=== PATIENT | male | born 1960 | race Hispanic/Latino ===

== ENCOUNTER 2016-11-09 09:52 | Outpatient (CLI) | payer MEDICARE, OTHER ==
--- NOTE | 2016-11-09 13:12 | Fluoroscopy Report ---
UPPER GI SERIES WITH AIR-CONTRAST History: Dysphagia, gastroesophageal reflux disease. Findings: Compared to 08/20/13. Deglutition is normal. No evidence for aspiration. The esophagus has normal caliber and mucosal pattern throughout. No evidence for stricture, ring, web or abnormal dilatation. Multiple tertiary contractions were witnessed in the esophagus throughout this exam consistent with spasm. Occasional episodes of gastroesophageal reflux to the proximal esophagus was witnessed. A LAP band appears to be in good position. There is no evidence for slippage. There is easy passage of the contrast agent through the lap band. There is normal filling of the gastric cavity. No evidence for ulceration or mass. The duodenal bulb and duodenal sweep are within normal limits. 1 cm diverticulum projecting from the descending duodenum is unchanged. Impression: Essentially normal appearance of the LAP band. Esophageal spasm and episodes of gastroesophageal reflux to the proximal esophagus were witnessed during this exam. Esophagitis is likely.
== END 2016-11-09 09:53 | disposition home or self-care (01) ==
LOC: FLUORO 09:52
PROVIDERS: ATTEND Specialist
DX: K21.9 Gastro-esophageal reflux disease without esophagitis (principal); K57.10 Diverticulosis of small intestine without perforation or abscess without bleeding
CPT/HCPCS: 74247

== ENCOUNTER 2016-12-20 06:34 | Day surgery (SDC) | payer MEDICARE, OTHER ==
[2016-12-20] MEDS ORDERED: NACL 0.9% 1000 ML 1,000 ML IV SCH (09:00)
[2016-12-20] MEDS ORDERED: DIPRIVAN 10 MG/ML IV ONE ×3 (09:19)
--- NOTE | 2016-12-20 09:19 | Anesthesia Day of Surgery ---
Anesthesia Day of Surgery - Day of Surgery Patient Examined: Yes Patient H&P Reviewed: Yes Patient is NPO: Yes
--- NOTE | 2016-12-20 09:19 | Anesthesia Consultation ---
Anesthesia Consult and Med Hx Date of service: 12/20/16 - Airway Anesthetic Teeth Evaluation: Chipped (front teeth) ROM Head & Neck: Adequate Mental/Hyoid Distance: Adequate Mallampati Class: Class II Intubation Access Assessment: Probably Good - Pulmonary Exam CTA: Yes - Cardiac Exam Cardiac Exam: RRR - Pre-Operative Health Status ASA Pre-Surgery Classification: ASA3 Proposed Anesthetic Plan: MAC - Pulmonary Hx Smoking: Yes (quit 6 months ago) SOB: Yes COPD: Yes Hx Sleep Apnea: Yes (CPAP doesnt use) - Cardiovascular System Hx Hypertension: Yes Hx Coronary Artery Disease: Yes Hx Heart Attack/AMI: Yes Hx Percutaneous Transluminal Coronary Angioplasty (PTCA): Yes - Central Nervous System CVA: 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
--- NOTE | 2016-12-20 09:49 | Operative Report ---
Operative Report Operative Report: DATE 12/20/2016 SURGERY: Upper endoscopy. SURGEON: Julian Meier M.D. INSURANCE UNDERWRITER: Ryan Ackerman MD PRE OP DX: dyspepsia POST OP DX: same TYPE OF ANESTHESIA: MAC. ESTIMATED BLOOD LOSS: None. COMPLICATIONS: None. SPECIMENS REMOVED: None. FINDINGS: 1. Lap gastric band in correct position 2. Otherwise, normal esophagus, stomach and first portion of duodenum. INDICATIONS:INDICATION FOR PROCEDURE: Patient is a 56-year-old male with a long history of morbid obesity. He is planned to have a weight loss procedure and is here for preoperative planning EGD. PROCEDURE DETAILS: After consent was reviewed, patient was taken back to the operating room where patient was placed in the left lateral decubitus position and a bite block was placed in the mouth. After a time-out was called, MAC anesthesia was initiated. I then passed the endoscope into her oropharynx, into his esophagus, visualized the entire esophagus, which was all within normal limits. I then visualized the stomach and the first portion of the duodenum and there were no abnormalities I could clearly visualize. I then retroflexed the scope in the stomach and visualized the lap band on correct position. I couldn't see the hiatus. I then desufflated the stomach and removed the endoscope. Patient tolerated procedure well and was transferred to recovery room in good and stable condition.
--- NOTE | 2016-12-20 09:51 | Discharge Summary ---
Providers - Providers Date of discharge: 12/20/16 Attending physician: ROXY PULIDO Primary care physician: SAVANAH KIM Hospitalization Reason for admission: outpateint EGD Condition: Stable Procedures: EGD Disposition: DISCHARGED TO HOME OR SELFCARE Core Measure Documentation - Palliative Care Palliative Care/ Comfort Measures: Not Applicable - Core Measures Any of the following diagnoses?: none Exam - Physical Exam Narrative exam: unchanged from preop - Constitutional Vitals: Temp Pulse Resp BP Pulse Ox 97.5 F L 67 20 146/84 96 12/20/16 08:46 12/20/16 08:46 12/20/16 08:46 12/20/16 08:46 12/20/16 08:46 Plan Activity: advance as tolerated Diet: low carbohydrate Follow up with: SAVANAH KIM MD [Primary Care Provider] - 7 Days
[2016-12-20 10:13] VITALS: BP 127/64
--- NOTE | 2016-12-20 15:08 | Post Anesthesia Evaluation ---
- Post Anesthesia Evaluation Patient Participated: Yes Airway Patent: Yes Stable Respiratory Function: Yes Nausea/Vomiting: No Temp > 96.8F: Yes Pain Manageable: Yes Adequeate Hydration: Yes Anesthesia Complications: No Block Receding Appropriately: Not Applicable Patient on Ventilator: No
== END 2016-12-20 06:35 | disposition home or self-care (01) ==
LOC: GIO 06:34
PROVIDERS: ATTEND Specialist
DX: R10.13 Epigastric pain (principal); J43.9 Emphysema, unspecified; I10 Essential (primary) hypertension; M19.90 Unspecified osteoarthritis, unspecified site; G47.33 Obstructive sleep apnea (adult) (pediatric); F32.9 Major depressive disorder, single episode, unspecified; I25.10 Atherosclerotic heart disease of native coronary artery without angina pectoris; E66.01 Morbid (severe) obesity due to excess calories; Z68.41 Body mass index [BMI] 40.0-44.9, adult; Z86.73 Personal history of transient ischemic attack (TIA), and cerebral infarction without residual deficits; Z85.828 Personal history of other malignant neoplasm of skin; Z98.84 Bariatric surgery status; Z87.891 Personal history of nicotine dependence; Z95.1 Presence of aortocoronary bypass graft; Z95.5 Presence of coronary angioplasty implant and graft; Z79.899 Other long term (current) drug therapy
CPT/HCPCS: 43235; J2704

== ENCOUNTER 2018-12-25 06:59 | Day surgery (SDC) | payer MEDICARE, OTHER ==
[2018-12-25] MEDS ORDERED: NACL 0.9% 500 ML 500 ML IV SCH (08:00)
[2018-12-25] MEDS ORDERED: HEPARIN/NS 5000 UNIT/500ML(CATH LAB) 1,000 ML IR ONE (09:16)
[2018-12-25] MEDS ORDERED: VERSED ONE (09:17)
[2018-12-25] MEDS ORDERED: HEPARIN 10,000 UNITS/10 ML ONE (09:17)
[2018-12-25] MEDS ORDERED: XYLOCAINE 2% INFILTRATI ONE (09:17)
[2018-12-25] MEDS ORDERED: NITROGLYCERIN SYRINGE 0 ML ONE (09:17)
[2018-12-25] MEDS ORDERED: CALAN ONE (09:17)
[2018-12-25] MEDS: SUBLIMAZE ONE ×2 (10:01→10:14)
--- NOTE | 2018-12-25 12:25 | Short Stay Summary ---
Short Stay Documentation Date of service: 12/25/18 - History H&P: obtained from office - Allergies and Medications Current Medications: Allergies No Known Allergies Allergy (Verified 01/17/17 12:21) Home Medications Medication Instructions Recorded Confirmed Last Taken Type AtorvaSTATin [Lipitor] 20 mg PO DAILY 11/03/15 12/25/18 12/24/18 History 20mg Clopidogrel Bisulfate [Plavix] 75 mg PO DAILY 11/03/15 12/25/18 12/24/18 History 75mg Ezetimibe [Zetia] 10 mg PO QDAY 11/03/15 12/25/18 12/24/18 History 10mg ISOSORBIDE MONOnitrate [Imdur ER] 30 mg PO QPM 11/03/15 12/25/18 12/24/18 History 30mg Lisinopril [Zestril TAB] 5 mg PO QDAY 11/03/15 12/25/18 12/24/18 History 5mg Metoprolol [Lopressor TAB] 100 mg PO BID 11/03/15 12/25/18 12/24/18 History 100mg Nitroglycerin [Nitrostat] 0.4 mg SL Q5M PRN 11/03/15 12/25/18 10/18/18 History 0.4mg Ranolazine [Ranexa] 1,000 mg PO BID 11/03/15 12/25/18 12/24/18 History 1000mg Aspirin EC [Aspirin Enteric Coated 81 mg PO QDAY 01/05/17 12/25/18 12/24/18 History TAB] 81mg Active Medications Sodium Chloride (Nacl 0.9% 500 Ml) 500 mls @ 50 mls/hr IV DIRECT KARYN Stop: 12/25/18 17:59 Last Admin: 12/25/18 08:36 Dose: 50 mls/hr Documented by: - Brief post op/procedure progress note Date of procedure: 12/25/18 Pre-op diagnosis: angina Post-op diagnosis: same Procedure: see report Anesthesia: local Estimated blood loss: none Pathology: none - Disposition Condition at discharge: Good Disposition: [id number]-01 TO HOME OR SELFCARE - Discharge Diagnoses (1) Angina effort Status: Chronic (2) CAD (coronary artery disease) of bypass graft Status: Chronic Qualifiers: [place] vs. transplanted heart: [place] heart Associated angina: with stable angina Qualified Code(s): I25.708 - Atherosclerosis of coronary artery bypass graft(s), unspecified, with other forms of angina pectoris (3) Hyperlipemia, mixed Status: Chronic (4) Hypertension Status: Chronic Qualifiers: Hypertension type: essential hypertension Qualified Code(s): I10 - Essential (primary) hypertension Short Stay Discharge Plan Activity: advance as tolerated Diet: low fat, low cholesterol Wound: keep clean and dry Follow up with: SAVANAH KIM MD [Primary Care Provider] - 7 Days
--- NOTE | 2018-12-25 14:11 | Cardiac Catherization Report ---
PROCEDURE: Left heart catheterization with bypass grafts with venous and internal mammary graft angiography. CLINICAL INFORMATION: This is a 58-year-old gentleman with recurrent anginal symptoms. He has a history of bypass surgery, 5-vessel 3 years ago. He had a cardiac catheterization, showed occluded SVG to PDA and occluded SVG to OM1, had a patent CABRERA to LAD, had SVG to diagonal in-stent restenosis around 50% and SVG to OM was patent and has normal LV function in echocardiogram despite medical therapy. He is here for left heart catheterization. Left heart catheterization done with moderate sedation, 1 mg Versed, 50 mcg of fentanyl. Total sedation time was 24 minutes, started at 10:01 a.m., finished at 10:25 a.m. FINDGINS: 1. Left heart catheterization performed via the left common femoral artery, sterile technique, local anesthesia, 5-[place] groin sheath inserted. 2. Left system engaged with JL4 catheter. Left main is a medium caliber vessel, it is patent. LAD is a medium caliber vessel, proximal 80% to competitive flow on diagonal and see competitive flow on the distal LAD. Circumflex and AV groove is patent with mild luminal irregularities. OM1 is a medium caliber vessel, has an ostial 40% lesion. Rest of the vessel is patent. OM2 proximal 80% to competitive flow distally. RCA engaged with JR4, is a large dominant vessel, proximal patent, mid diffuse 40%. Distal is patent. PDA and PLV are [id number] caliber vessel is patent. LV gram done in [place] and [place] shows normal LV function, LVEDP of 50 mmHg, LV is 116, aortic is 116/62 mmHg. No gradient across the aortic valve on pullback. EF is approximately 55-60%. 3. CABRERA to LAD was engaged with IM catheter, it is a large caliber graft, free of disease from the ostium, body, and anastomosis site into the distal LAD with good runoff. 4. SVG to diagonal engaged with JR4 catheter, in-stent restenosis of approximately 40-50%, proximally the mid to distal stent is patent, good feeds into a medium caliber diagonal with retrograde flow into that LAD. 5. SVG to OM engaged with JR4, it is a large caliber graft, free of disease ostium, body, and anastomosis site, feeds into a medium caliber OM2 with retrograde fill into OM3. All catheters were taken over guidewire, 5-[place] groin sheath was discontinued. Manual pressure held. No hematoma, no bleeding. SUMMARY: 1. Patent CABRERA to LAD, patent SVG to OM, SVG to diagonal in-stent restenosis, approximately 50% in the proximal portion of stent. 2. RCA mid 40%, distal patent. PDA and PLV are patent. 3. Left main patent, LAD proximal 80% with competitive flow on diagonal and LAD. 4. Circumflex patent AV groove. OM1 ostial 40%. OM2 80% proximal, competitive flow, continue to treat medically. JOB# [id number] FRANCO/TRINA
[2018-12-25 14:38] VITALS: BP 106/71
== END 2018-12-25 15:06 | disposition home or self-care (01) ==
LOC: CATHLABREC 06:59
PROVIDERS: ATTEND Internal Medicine
DX: T82.855A Stenosis of coronary artery stent, initial encounter (principal); I11.0 Hypertensive heart disease with heart failure; I50.9 Heart failure, unspecified; E78.2 Mixed hyperlipidemia; E66.9 Obesity, unspecified; E78.00 Pure hypercholesterolemia, unspecified; J43.9 Emphysema, unspecified; G47.30 Sleep apnea, unspecified; K21.9 Gastro-esophageal reflux disease without esophagitis; F17.210 Nicotine dependence, cigarettes, uncomplicated; I25.118 Atherosclerotic heart disease of native coronary artery with other forms of angina pectoris; I25.810 Atherosclerosis of coronary artery bypass graft(s) without angina pectoris; M81.0 Age-related osteoporosis without current pathological fracture; Z68.25 Body mass index [BMI] 25.0-25.9, adult; Z79.82 Long term (current) use of aspirin; Z95.1 Presence of aortocoronary bypass graft; Z79.899 Other long term (current) drug therapy; Z90.49 Acquired absence of other specified parts of digestive tract; Z87.442 Personal history of urinary calculi; Z98.890 Other specified postprocedural states; Z86.2 Personal history of diseases of the blood and blood-forming organs and certain disorders involving the immune mechanism; Z86.73 Personal history of transient ischemic attack (TIA), and cerebral infarction without residual deficits; Y83.8 Other surgical procedures as the cause of abnormal reaction of the patient, or of later complication, without mention of misadventure at the time of the procedure; Y92.89 Other specified places as the place of occurrence of the external cause
CPT/HCPCS: 93005; 93010; 93459; 99156; 99157; J1644; J2250; J3010; J7040; Q9967